=== PATIENT | female | born 1985 | race Caucasian/White ===

== ENCOUNTER 2025-07-12 04:43 | Emergency (ER) | payer MEDICAID ==
[~2025-07-12] VITALS: Ht 165.1 cm; Wt 118.0 kg
[2025-07-12 04:48] VITALS: O2SAT 98
[2025-07-12] MEDS: SODIUM CHLORIDE 0.9% 1,000 ML IV ONE (05:44)
[2025-07-12 05:52] LABS: BASOPHILS % 1.2 % (0.0-2.0); EOSINOPHILS % 1.7 % (0.0-5.0); HEMATOCRIT. 39.0 % (36.0-48.0); HEMOGLOBIN. 12.8 g/dL (12.0-16.0); LYMPHOCYTES % 50.5 % (20.0-50.0); MEAN PLATELET VOLUME 9.6 fl (7.4-10.4); MONOCYTES % 4.3 % (2.0-8.0); NEUTROPHILS % 42.3 % (40.0-76.0); PLATELET 252 x1000/uL (130-400); RED BLOOD CELL COUNT 4.44 mill/uL (4.2-5.4); RED CELL DISTRIBUTION WIDTH 13.9 % (11.6-14.6)
[2025-07-12 06:06] LABS: CLARITY URINE CLEAR (CLEAR); COLOR URINE YELLOW (YELLOW); GLUCOSE URINE NEGATIVE (NEGATIVE); KETONES URINE NEGATIVE (NEGATIVE); LEUKOCYTE ESTERASE URINE NEGATIVE (NEGATIVE); NITRITE URINE NEGATIVE (NEGATIVE); OCCULT BLOOD URINE NEGATIVE (NEGATIVE); PH URINE 5.5 (4.5-8.0); PROTEIN URINE NEGATIVE (NEGATIVE); SPECIFIC GRAVITY URINE 1.002 (1.005-1.030); UROBILINOGEN URINE 0.2 E.U./dL (0.2-1.0)
[2025-07-12 06:11] LABS: CREATININE 0.9 mg/dL (0.6-1.0); ETHANOL BLOOD 287 mg/dL (<10); UREA NITROGEN BLOOD 6 mg/dL (9-23)
[2025-07-12 06:13] LABS: TROPONIN I HIGH SENSITIVITY 12 ng/L (3.0-34)
[2025-07-12 06:16] LABS: *AMPHETAMINES SCREEN URINE NEGATIVE (NEGATIVE); *BENZODIAZEPINES SCREEN URINE NEGATIVE (NEGATIVE)
[2025-07-12 06:17] LABS: *BARBITURATES SCREEN URINE NEGATIVE (NEGATIVE); *COCAINE SCREEN URINE NEGATIVE (NEGATIVE); CANNABINOID URINE SCREEN NEGATIVE (NEGATIVE); ECSTASY MDMA SCREEN URINE NEGATIVE (NEGATIVE); METHADONE URINE SCREEN NEGATIVE (NEGATIVE); OPIATES URINE SCREEN NEGATIVE (NEGATIVE); PHENCYCLIDINE URINE SCREEN NEGATIVE (NEGATIVE)
[2025-07-12 06:28] LABS: HCG SCREEN NEGATIVE
[2025-07-12 08:48] VITALS: BP 114/75; PULSE 95; RESP 18; TEMP 36.7; O2SAT 100
[2025-07-12] MEDS ORDERED: HYDRALAZINE 20MG/ML VIAL IV PRN (09:30)
[2025-07-12] MEDS ORDERED: CLONIDINE 0.1MG TABLET PO PRN (09:30)
[2025-07-12] MEDS ORDERED: ACETAMINOPHEN 325MG TABLET PO PRN (09:30)
[2025-07-12] MEDS ORDERED: DEXTROSE 50% WATER 50ML SYRINGE IV PRN (09:30)
[2025-07-12] MEDS ORDERED: ONDANSETRON HCL 4MG/2ML INJ IV PRN (09:30)
[2025-07-12] MEDS ORDERED: DOCUSATE SODIUM 100MG CAPSULE PO PRN (09:30)
[2025-07-12] MEDS ORDERED: IPRATROPIUM/ALBUTEROL 0.5-3(2.5)MG/3ML NEB HHN PRN (09:30)
[2025-07-12] MEDS ORDERED: MVI, ADULT NO.1 10 ML, FOLIC ACID 1 MG, THIAMINE HCL 100 MG in SODIUM CHLORIDE 0.9% 1,0... IV ONE (11:00)
[2025-07-12] MEDS ORDERED: BLOOD SUGAR DIAGNOSTIC STRIP TEST SCH (13:00)
[2025-07-13] MEDS ORDERED: THIAMINE HCL 100MG TABLET PO SCH (09:00)
[2025-07-13] MEDS ORDERED: FOLIC ACID 1MG TABLET PO SCH (09:00)
== END 2025-07-12 08:53 | disposition left against medical advice (07) ==
LOC: EDBD 04:43 → ER 04:43 → EDBEDREQTM 06:57 → EDBEDREQ 06:57 → ER 08:53 → CMPBEDREQ 12:37
DX: G40.909 Epilepsy, unspecified, not intractable, without status epilepticus (principal); E87.0 Hyperosmolality and hypernatremia; J45.998 Other asthma
CPT/HCPCS: 80305; 80048; 81003; 80320; 84703; 85025; 84484; 36415; 71045; 70450; 74176; 93970; 96360; 99285; J7030; J3411; J3490; G0480